=== PATIENT | male | born 1945 | race Native Hawaiian/Other Pacific Islander ===

== ENCOUNTER 2020-07-05 08:39 | Outpatient (CLI) | payer OTHER | END 2020-07-05 20:26 | disposition home or self-care (01) | LOC: RESP 08:39 | PROVIDERS: ATTEND Internal Medicine Sleep Medicine | DX: R06.02 Shortness of breath (principal) ==

== ENCOUNTER 2020-07-13 10:57 | Outpatient (CLI) | payer OTHER ==
[2020-07-13 11:55] LABS: PLATELET COUNT 188 K/uL (142-355)
== END 2020-07-13 23:20 | disposition home or self-care (01) ==
LOC: LABW 10:57
PROVIDERS: ATTEND Internal Medicine Sleep Medicine
DX: J45.909 Unspecified asthma, uncomplicated (principal)
CPT/HCPCS: 36415; 82785; 85027; 86003

== ENCOUNTER 2022-10-06 07:56 | Outpatient (CLI) | payer OTHER | END 2022-10-06 19:11 | LOC: RAD 07:56 → LABW 07:56 | PROVIDERS: ATTEND Nurse Practitioner Family | DX: J45.51 Severe persistent asthma with (acute) exacerbation (principal) | CPT/HCPCS: 36415; 82785 ==

== ENCOUNTER 2023-07-23 11:09 | Outpatient (CLI) | payer OTHER | END 2023-07-23 19:41 | disposition home or self-care (01) | LOC: LABW 11:09 | PROVIDERS: ATTEND Nurse Practitioner Family | DX: J45.51 Severe persistent asthma with (acute) exacerbation (principal) | CPT/HCPCS: 82785 ==